=== PATIENT | male | born 1930 | race African-American/Black ===

== ENCOUNTER 2017-08-07 11:39 | Emergency (ER) | payer MEDICARE ==
[2017-08-07] MEDS: 0.9 % SODIUM CHLORIDE 1,000 ML IV SCH (11:55)
--- NOTE | 2017-08-07 12:13 | ED Physician Documentation ---
Syncope/Near Syncope - HISTORIAN Historian: patient, child, other - HPI Stated Complaint: near syncope Chief Complaint: Syncope Additional Information: pt at [facility] standing got dizzy sl diaphoretic sat down-did not pass out feels much better now Witnessed: Yes (family) Position at Time of Episode: standing Symptoms Prior to Episode: none Character of Events(s): felt faint. 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 denies: diabetes Type 2 Surgeries/Procedures: none Allergies/Adverse Reactions: Allergies Allergy/AdvReac Type Severity Reaction Status Date / Time No Known Allergies Allergy Verified 08/07/17 11:59 Home Medications: Ambulatory Orders Medication Instructions Recorded Lisinopril [Prinivil] 20 mg PO QD #14 tablet 03/11/13 Aspirin EC [Ecotrin] 81 mg PO DAILY 08/07/17 Tamsulosin HCl [Flomax] 0.4 mg PO DAILY 08/07/17 - SOCIAL HX Smoking History: non-smoker Alcohol Use: none Drug Use: none - FAMILY HX Family History: none - VITAL SIGNS Vital Signs: Vital Signs Temp Pulse Resp BP Pulse Ox 98.2 F 40 L 16 117/63 95 08/07/17 11:52 08/07/17 11:52 08/07/17 11:52 08/07/17 11:52 08/07/17 11:52 - REVIEWED ASSESSMENTS Nursing Assessment Reviewed: Yes Vitals Reviewed: Yes ED Results Lab/Radiology - Orders Orders: ED Orders Category Date Time Status CHEST P.A.&LAT 2 VIEWS [RAD] Stat Exams 08/07/[address] BRAIN W/O CONTRAST Stat Exams 08/07/17 Ordered CBC/PLATELET/DIFF Routine Lab 08/07/17 Ordered CMP Routine Lab 08/07/17 Ordered URINALYSIS Routine Lab 08/07/17 Ordered NORMAL SALINE @ 100 MLS/HR(1000ml) Med 08/07/17 12:00 Ordered 0.9 % Sodium Chloride [Normal Saline] 1,000 ml IV Q10H Oxygen Daily Oxygen 08/07/17 12:00 Ordered EKG WITH COMPARISON Stat Ther 08/07/17 Ordered Syncope Physical Exam - Physical Exam General Appearance: no acute distress EENT: nml eye inspection Neck/Back: neck supple, non-tender, no carotid bruit Respiratory: no resp distress, chest non-tender, breath sounds normal CVS: bradycardia. No: reg rate & rhythm Abdomen: non-tender - Neuro/Psych Higher Functions: alert, oriented x3, no evidence of acute CVA, mood/affect nml , inappropriate respond. denies: abnml respond to command Cranial Nerves: nml as tested. denies: pronator drift Sensorimotor: nml motor response, nml sensory response, nml reflexes Discharge Referrals: Mine Richardson MD [Primary Care Provider] - 2 Days
[2017-08-07 12:40] LABS: BASOPHILS % 0.6 (0.0-1.5); MEAN CORPUSCULAR HEMOGLOBIN 28.9 pg (28.0-34.0); MEAN CORPUSCULAR VOLUME 93.1 fl (80.0-100.0)
[2017-08-07 12:41] LABS: EOSINOPHILS % 2.8 % (0.0-6.8); MONOCYTES % 5.3 % (0.0-11.0)
[2017-08-07 13:54] VITALS: BP 116/74
--- NOTE | 2017-08-07 13:57 | Diagnostic Imaging Report ---
[facility] [address] [facility] [address], [place]. [address] Report Submission Date: Aug 07, 2017 12:45:26 PM CDT Patient Study Name: AMANDA GORDON Date: Aug 07, 2017 12:15:09 PM CDT Modality Type: CR Gender: M Description: CHEST : [birth year] Institution: [facility] Physician: ARIANA HALE - GHULAM Chest AP portable at 1216 hours of August 07, 2017 Clinical history: Dyspnea Mild cardiomegaly with atherosclerotic thoracic aorta. Mild hyperinflation of both lung santamaria. No acute infiltrates or pleural effusion. Normal bony thorax Impression: Mild cardiomegaly with atherosclerotic thoracic aorta No acute infiltrates or pleural effusion Electronically signed on Aug 07, 2017 12:45:26 PM CDT by: Jame JACKSON
--- NOTE | 2017-08-07 13:58 | Diagnostic Imaging Report ---
[facility] [address] [facility].[address] 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 No bleeding. No visible mass lesion , midline shift or hydrocephalus. No visible tumor mass. Mastoid air cells are clear. Opacified right posterior ethmoid air cells Impression: Moderate atrophy without bleeding or acute intracranial abnormalities Electronically signed on Aug 07, 2017 12:43:46 PM CDT by: Jame JACKSON
[2017-08-08 05:47] LABS: NEUTROPHILS # 5.1 # k/uL (1.4-7.7)
== END 2017-08-07 13:50 ==
LOC: ED 11:39
DX: R55 Syncope and collapse (principal)
CPT/HCPCS: 70450; 71020; 80053; 84484; 85025; J7030; 96360; 99283

== ENCOUNTER 2017-11-23 10:46 | Outpatient (CLI) | payer MEDICARE | END 2017-11-23 10:47 | LOC: POD 10:46 | PROVIDERS: ATTEND Podiatrist Public Medicine | DX: L60.0 Ingrowing nail (principal); M79.609 Pain in unspecified limb; B35.9 Dermatophytosis, unspecified | CPT/HCPCS: 11721; G0463 ==

== ENCOUNTER 2017-12-30 10:00 | Emergency (ER) | payer MEDICARE ==
[2017-12-30] MEDS ORDERED: METOCLOPRAMIDE HCL 5 MG TABLET PO ONE (10:38)
[2017-12-30] MEDS ORDERED: HYOSCYAMINE SULFATE 0.125 MG TAB.SUBL SL ONE (10:38)
[2017-12-30] MEDS ORDERED: ONDANSETRON HCL 4 MG TAB.RAPDIS PO ONE (10:38)
[2017-12-30 10:55] LABS: BASOPHILS % 0.2 (0.0-1.5); EOSINOPHILS % 0.2 % (0.0-6.8); MEAN CORPUSCULAR HEMOGLOBIN 29.8 pg (28.0-34.0); MEAN CORPUSCULAR VOLUME 95.4 fl (80.0-100.0); MONOCYTES % 2.5 % (0.0-11.0)
[2017-12-30 11:13] LABS: eGFR (African) > 60; eGFR (Non-African) > 60
[2017-12-30] MEDS ORDERED: MAGNESIUM HYDROXIDE 400 MG/5 ML 30ML UDC PO ONE (12:05)
--- NOTE | 2017-12-30 12:18 | ED Physician Documentation ---
Abdominal Pain - HISTORIAN Historian: patient - HPI Stated Complaint: Abdominal "Bloating" Pain Chief Complaint: Abdominal Pain Additonal Information: pt. had small hard bm yesterday, last weekend and today abd. cramping and distension Onset: days ago (1) Duration: sudden-onset Timing: still present Context: denies: out of country travel, bad food, recent trauma Severity: mild Quality: aching Front/Back of Body, Lg (Color): 1 - pain Associated Symptoms: nausea, vomiting. denies: coffee ground emesis, bloody emesis, diarrhea, bloody stools, grossly bloody stools, mucous, sweating, loss of appetite, back pain Exacerbated by: nothing Relieved by: nothing Further Comments: no - ROS CONST: no problems GI/: constipation CVS/RESP: none EYES/ENT: none MS/SKIN/LYMPH: none NEURO/PSYCH: none - SOCIAL HX Smoking History: non-smoker Alcohol Use: none Drug Use: none - FAMILY HX Family History: no significant history - PAST HX Past History: other (constipation) Ischemic Bowel Risk Factors: none Other History: hyperlipidemia, hypertension Surgeries/Procedures: none Immunizations: referred to PCP Home Medications: Ambulatory Orders Medication Instructions Recorded Aspirin EC [Ecotrin] 81 mg PO DAILY 08/07/17 Tamsulosin HCl [Flomax] 0.4 mg PO DAILY 08/07/17 Pravastatin Sodium [Pravachol] 40 mg PO DAILY 12/30/17 amLODIPine BESYLATE [Norvasc] 5 mg PO 0900 12/30/17 Allergies/Adverse Reactions: Allergies Allergy/AdvReac Type Severity Reaction Status Date / Time Penicillins Allergy Verified 12/30/17 10:15 - VITAL SIGNS Vital Signs: Vital Signs Temp Pulse Resp BP Pulse Ox 97.4 F L 64 18 120/68 96 12/30/17 10:00 12/30/17 12:32 12/30/17 12:32 12/30/17 12:32 12/30/17 12:32 - REVIEWED ASSESSMENTS Nursing Assessment Reviewed: Yes Vitals Reviewed: Yes Progress - Results/Orders Results/Orders: aas, cmp, cbc ordered - Progress Progress: pt. given 30 cc MOM, 15 cc lactulose, 4 mg zofran, 10 mg reglan, 0.25 mg hyoscyamine all p.o. in ER Critical Care Note - Critical Care Note Total Time (mins): 0 ED Results Lab/Radiology - Lab Results Lab Results: Lab Results 12/30/17 12/30/17 10:45 10:45 WBC 11.90 K/ul K/ul (4.00-12.00) RBC 4.38 M/ul M/ul (3.90-5.20) Hgb 13.1 g/dL g/dL (12.0-18.0) Hct 41.8 % % (37.0-53.0) MCV 95.4 fl fl (80.0-100.0) MCH 29.8 pg pg (28.0-34.0) MCHC 31.3 g/dL g/dL (30.0-36.0) RDW 12.1 % % (11.3-14.3) Plt Count 252 K/mm3 K/mm3 (130-400) Neut % (Auto) 83.6 % H % (39.0-79.0) Lymph % (Auto) 12.6 % L % (16.0-50.0) [place] % (Auto) 2.5 % % (0.0-11.0) Eos % (Auto) 0.2 % % (0.0-6.8) Baso % (Auto) 0.2 (0.0-1.5) Neut # (Auto) 10.0 # k/uL H # k/uL (1.4-7.7) Lymph # (Auto) 1.5 # k/uL # k/uL (0.6-4.0) [place] # (Auto) 0.3 # k/uL # k/uL (0.0-0.9) Eos # (Auto) 0.0 # k/uL # k/uL (0.0-0.6) Baso # (Auto) 0.0 # k/uL # k/uL (0.0-0.5) Reactive Lymphs % 0.9 % % (0.0-5.0) Reactive Lymphs # 0.1 # k/uL # k/uL (0.0-0.8) Sodium 144 mmol/L mmol/L (136-145) Potassium 3.6 mmol/L mmol/L (3.5-5.1) Chloride 103 mmol/L mmol/L (98-107) Carbon Dioxide 29 mmol/L mmol/L (22-30) BUN 13 mg/dL mg/dL (9-20) Creatinine 1.20 mg/dL mg/dL (0.66-1.25) Estimated Creat Clear 49 Est GFR ( Amer) > 60 (60 - ) Est GFR (Non-Af Amer) > 60 (60 - ) Glucose 145 mg/dL H mg/dL (74-106) Calcium 9.7 mg/dL mg/dL (8.4-10.2) Total Bilirubin 2.7 mg/dL H mg/dL (0.2-1.3) AST 205 U/L H U/L (15-46) ALT 84 U/L H U/L (13-69) Alkaline Phosphatase 141 U/L H U/L (38-126) Total Protein 7.4 g/dL g/dL (6.3-8.2) Albumin 4.2 g/dL g/dL (3.5-5.0) - Radiology Radiology Impressions: aas shows colonic gas, no sbo - Orders Orders: ED Orders Category Date Time Status Further Nursing Orders 1T Care 12/30/17 12:05 Active ABD SERIES PA CHEST [RAD] Stat Exams 12/30/17 Completed CBC/PLATELET/DIFF Routine Lab 12/30/17 10:45 Completed CMP Routine Lab 12/30/17 10:45 Completed Hyoscyamine Sulfate [Oscimin Sl] Med 12/30/17 10:38 Discontinued 0.125 mg SL NOW ONE Lactulose [Enulose] Med 12/30/17 12:20 Discontinued 10 gm PO .STK-MED ONE Lactulose [Enulose] Med 12/30/17 13:00 Discontinued 10 gm PO 1100 Magnesium Hydroxide [Milk of Magnesia] Med 12/30/17 12:05 Discontinued 2,400 mg PO NOW ONE Metoclopramide HCl [Reglan] Med 12/30/17 10:38 Discontinued 5 mg PO NOW ONE Ondansetron HCl Rapdis [Zofran Odt] Med 12/30/17 10:38 Discontinued 4 mg PO NOW ONE Abdominal Pain Physical Exam - Physical Exam General Appearance: no acute distress, alert EENT: eye inspection normal, ENT inspection normal, pharynx normal, no signs of dehydration, MUNA, no nystagmus, TM's nml NECK: normal inspection, thyroid normal, supple RESPIRATORY: no resp distress, chest non-tender, breath sounds normal CVS: reg rate & rhythm, heart sounds normal, equal pulses, no murmur, no gallop , PMI nml, no JVD ABDOMEN: soft, no organomegaly, no abdominal bruit, tenderness (generalized), decreased BS, distended (postive tympany). No: hepatomegaly, mass BACK: normal inspection, no CVA tenderness SKIN: warm/dry, normal color EXTREMITIES: non-tender, normal range of motion, no evidence of injury, no edema NEURO: oriented X3, CN's nml as tested, motor nml, sensation nml, mood/affect nml, cognition normal Vital Signs: Vital Signs Temp Pulse Resp BP Pulse Ox 97.4 F L 64 18 120/68 96 12/30/17 10:00 12/30/17 12:32 12/30/17 12:32 12/30/17 12:32 12/30/17 12:32 Discharge Clincal Impression: Constipation Qualifiers: Constipation type: unspecified constipation type Qualified Code(s): K59.00 - Constipation, unspecified Referrals: Primary Doctor,No [Primary Care Provider] - 2 Days Comments: Discharged in stable condition with recommendation for more fluid and fiber. Condition: Stable Disposition: 01 HOME, SELF-CARE Decision to Admit: NO Decision Time: 12:18
[2017-12-30] MEDS ORDERED: LACTULOSE 10 GM/15 ML UDC PO ONE (12:20)
[2017-12-30 12:33] VITALS: BP 120/68
[2017-12-30] MEDS ORDERED: LACTULOSE 10 GM/15 ML UDC PO SCH (13:00)
--- NOTE | 2017-12-30 19:02 | Diagnostic Imaging Report ---
MIKKI SUMMERS [facility] [address] [facility] [address] [place], [place]. [address] Report Submission Date: Dec 30, 2017 11:17:25 AM [employer]WAHILI TE[employer]ER Patient Study Name: AMANDA GORDON Date: Dec 30, 2017 10:56:43 AM [employer]HILI TE[employer]ER Modality Type: DX Gender: M Description: ABDOMEN : [birth year] Institution: [facility] Physician: MIKKI SUMMERS Examination: Obstruction series History: ABD SERIES W/ PA CHEST, MID ABDOMINAL PAIN/ NAUSEA X1 DAY (Hx) Findings: 4 views obtained of the chest and abdomen. Single view of the chest demonstrate a prominent cardiac silhouette. Tortuous aorta with vascular calcifications. Minimal parenchymal haziness involving the right infrahilar region. Prominent loops of air-filled large bowel. Stool throughout the large bowel. No suspicious calcifications projecting over the renal fossa. Degenerative spurring of the lumbar vertebral bodies. Lower central pelvic calcifications. Impression: Right middle lobe parenchymal haziness. No peripheral consolidation or effusion. Prominent large bowel with air and stool. No abnormal small bowel dilation. Electronically signed on Dec 30, 2017 11:17:25 AM SWAHILI TEACHER by: Huan JACKSON
== END 2017-12-30 12:32 | disposition home or self-care (01) ==
LOC: ED 10:00
DX: K59.00 Constipation, unspecified (principal)
CPT/HCPCS: 36415; 74022; 80053; 85025; A9270; 99282

== ENCOUNTER 2018-02-22 09:58 | Outpatient (CLI) | payer MEDICARE | END 2018-02-22 10:00 | LOC: POD 09:58 | PROVIDERS: ATTEND Podiatrist Public Medicine | DX: B35.9 Dermatophytosis, unspecified (principal); L60.0 Ingrowing nail; M79.609 Pain in unspecified limb | CPT/HCPCS: 11721; G0463 ==

== ENCOUNTER 2018-06-07 08:21 | Outpatient (CLI) | payer MEDICARE | END 2018-06-07 08:22 | LOC: POD 08:21 | PROVIDERS: ATTEND Podiatrist Public Medicine | DX: B35.9 Dermatophytosis, unspecified (principal); L60.0 Ingrowing nail; M79.675 Pain in left toe(s); M79.674 Pain in right toe(s) | CPT/HCPCS: 11721; G0463 ==